=== PATIENT | male | born 1970 | race Caucasian/White ===

== ENCOUNTER 2019-03-18 14:43 | Emergency (ER) | payer BC, SELFPAY ==
[2019-03-18 15:16] VITALS: BP 189/118; PULSE 72; RESP 16; TEMP 36.6; O2SAT 96; BMI 36.9
== END 2019-03-18 17:15 | disposition home or self-care (01) ==
PROVIDERS: Emergency Provider Family Medicine; Family Provider Registered Nurse; PCP Registered Nurse
DX: Z53.21 Procedure and treatment not carried out due to patient leaving prior to being seen by health care provider (principal)
CPT/HCPCS: 99281

== ENCOUNTER 2019-04-13 16:43 | Emergency (ER) | payer BC, SELFPAY ==
[2019-04-13 17:11] VITALS: BP 187/123; PULSE 84; RESP 20; TEMP 36.8; O2SAT 93; BMI 36.9
== END 2019-04-13 21:25 | disposition left against medical advice (07) ==
LOC: ER 16:48
PROVIDERS: Emergency Provider Family Medicine; Family Provider Registered Nurse; PCP Registered Nurse
DX: Z53.21 Procedure and treatment not carried out due to patient leaving prior to being seen by health care provider (principal)
CPT/HCPCS: 99281

== ENCOUNTER → 2019-05-25 14:30 | Outpatient (BNVA) | payer BC, SELFPAY | PROVIDERS: Family Provider Registered Nurse; PCP Registered Nurse; Visit Provider Otolaryngology | DX: R22.1 Localized swelling, mass and lump, neck (principal); R07.81 Pleurodynia | CPT/HCPCS: 31575; 99203; 99204; 99214 ==

== ENCOUNTER 2019-06-03 07:54 | Outpatient (CLI) | payer BC, SELFPAY ==
--- NOTE | 2019-06-03 08:00 | CT_ITS ---
WS: [id number] CT NECK TECHNIQUE: Contrast-enhanced CT of the neck with coronal and sagittal reformatted images. CLINICAL INFORMATION neck mass Comparison Ultrasound July 17, 2018 DLP: 1689.[address] scans at [facility] use at least one of these dose optimization techniques: automat ed exposure control; mA and/or kV adjustment per patient size (includes targeted exams where dose is matched to clinical indication); or iterative reconstruction. FINDINGS: In the area of concern there is a well-circumscribed fat attenuation lesion consistent with lipoma me asuring 3.5 x 1.5 cm. This corresponds to the findings in the prior ultrasound. Salivary glands are normal. No evidence of supraglottic or glottic mass. Normal thyroid gland. Normal parapharyngeal fat. Normal tongue base. Normal palatine tonsils. Aberrant right subclavian artery. No cervical lymphadenopathy. Lung apices are normal. Mastoid air cells and paranasal sinuses are well aerated. Partially visualized intracranial contents unremarkable. CT/CT neck w con* [id number] IMPRESSION: 1. In the area of concern there is a well-circumscribed benign-appearing lipom a measuring 3.5 x 1.5 cm. This corresponds to the findings in the prior ultraso und. 2. Salivary glands are normal. 3. No cervical lymphadenopathy. 4. No evidence of supraglottic or glottic mass. 5. Aberrant right subclavian artery.
[2019-06-03] MEDS: iohexol 300 mg/mL 100 mL Btl IV (08:24)
== END 2019-06-03 07:55 | disposition home or self-care (01) ==
LOC: RADWPI 07:58
PROVIDERS: Family Provider Registered Nurse; PCP Registered Nurse; Visit Provider Otolaryngology
DX: R22.1 Localized swelling, mass and lump, neck (principal); Q27.8 Other specified congenital malformations of peripheral vascular system
CPT/HCPCS: 70491; Q9967

== ENCOUNTER → 2019-06-05 10:01 | Outpatient (BNVA) | payer BC, SELFPAY | PROVIDERS: Family Provider Registered Nurse; PCP Registered Nurse; Visit Provider Otolaryngology | DX: R22.1 Localized swelling, mass and lump, neck (principal) | CPT/HCPCS: 99213 ==

== ENCOUNTER → 2019-06-10 13:44 | Outpatient (BNVA) | payer BC, SELFPAY | PROVIDERS: Family Provider Registered Nurse; PCP Registered Nurse; Referring Provider Otolaryngology; Visit Provider Specialist | DX: M79.2 Neuralgia and neuritis, unspecified (principal); R07.81 Pleurodynia | CPT/HCPCS: 64450; 99204; J1030; J3490 ==

== ENCOUNTER → 2019-06-15 08:22 | Outpatient (BNVA) | payer BC, SELFPAY | PROVIDERS: Family Provider Registered Nurse; PCP Registered Nurse; Referring Provider Specialist; Visit Provider Anesthesiology Pain Medicine | DX: M79.2 Neuralgia and neuritis, unspecified (principal); Z79.891 Long term (current) use of opiate analgesic | CPT/HCPCS: 99213 ==

== ENCOUNTER 2019-06-24 08:07 | Outpatient (CLI) | payer BC, SELFPAY ==
--- NOTE | 2019-06-24 08:14 | MR_ITS ---
WS: [id number] MRI THORACIC SPINE noncontrast HISTORY: THORACIC NEURALGIA COMPARISON: None available. TECHNIQUE: Multiplanar sequences are performed in sagittal and axial planes. Slight reversal and straightening of the normal cervical lordosis. Normal thoracic alignment. Vertebral body heights and the disc spaces are well-maintained. No signal abnormality within the thoracic cord. There is no atrophy or enlargement. Conus tapers normally ends below the L1 level. T1-2: Normal. T2-3: Normal. T3-4: Normal. T4-5: Normal. T5-6: Normal. T6-7: Very tiny central disc protrusion. CSF still surrounds the cord. T7-8: Tiny central disc protrusion. No cord contact. T8-9: Normal. T9-10: Central tiny disc protrusion. Disc osteophyte complex in the RIGHT foramen. Mild facet joint arthritis. No central stenosis but there is mild bilateral foraminal stenosis. T10-11: Mild annular disc bulging and facet arthritis. Mild bilateral foraminal stenosis. T11-12: Mild bilateral foraminal stenosis. Mild foraminal narrowing. MR/MR thoracic spin wo con* [id number] IMPRESSION: 1. Mild bilateral foraminal stenosis at T9-10, T10-11 and T11-12 due to facet joint arthritis and mild disc disease. No severe stenosis. 2. Small central disc protrusions at T6-7, T7-8 and in the RIGHT foramen of T9 -10.
--- NOTE | 2019-06-24 08:45 | CT_ITS ---
WS: [id number] CT CHEST WITHOUT INTRAVENOUS CONTRAST HISTORY: Thoracic Neuralgia TECHNIQUE: Contiguous 5 mm axial imaging performed on the thorax. Coronal and sagittal reformats are submitted. All CT scans at [facility] use at least one of these dose optimization techniq ues: automated exposure control; mA and/or kV adjustment per patient size (includes targeted exams wh ere dose is matched to clinical indication); or iterative reconstruction. CONTRAST: None DLP: 1056.92 mGycm COMPARISON: None available. This study is compromised by breathing motion artifact. Lungs and central airway: Lung volumes are decreased with motion artifact. Mild haziness over both erika ngs. Some of these changes would improve with better inspiration and less breathing motion. There is mild air trapping posteriorly in the lower lung wetzel. A few scattered granulomata. Linear atelectas is at the lingula. No mass or nodule. Pleura: Normal. No pleural effusion. Heart and pericardium: Mildly enlarged cardiac chambers. No pericardial effusion. Mediastinum and hawk: There are calcified hilar mediastinal lymph nodes. No suspicious adenopathy. Vessels: Mildly dilated ascending aorta 4.2 cm diameter. Normal descending aorta. Normal pulmonary ar zak size. Chest wall and lower neck: No soft tissue masses. Upper abdomen: Mild bilateral perinephric stranding. No adrenal mass. Visualized upper abdominal stru ctures are negative. Small hiatal hernia. Osseous structures: Mild bilateral SC joint arthritis. No destructive bone lesions are identified. CT/CT chest wo con [id number] IMPRESSION: 1. Study is limited by breathing motion artifact and poor inspiration. 2. No pneumonia. Subsegmental atelectasis in the lingula. 3. Mild mosaic attenuation throughout the lungs with improved with better insp iration. 4. Mildly dilated ascending thoracic aorta to 4.2 cm. 5. No abnormality noted in the anterior RIGHT thorax.
== END 2019-06-24 08:08 | disposition home or self-care (01) ==
LOC: RADWPI 08:09
PROVIDERS: Family Provider Registered Nurse; PCP Registered Nurse; Visit Provider Specialist
DX: M79.2 Neuralgia and neuritis, unspecified (principal); J98.11 Atelectasis; M48.04 Spinal stenosis, thoracic region; M51.24 Other intervertebral disc displacement, thoracic region
CPT/HCPCS: 71250; 72146

== ENCOUNTER 2019-07-28 08:01 | Day surgery (SDC) | payer BC, SELFPAY ==
[2019-07-27 12:59] VITALS: BMI 39.1
[2019-07-28] MEDS: sodium chloride 0.9% 1,000 ML 100 ML IV (08:58)
--- NOTE | 2019-07-28 09:21 | P.ANESASSM_ITS ---
Pre-Anesthetic Assessment Pre-Anesthetic Assessment: Height/Weight: Height 1.75 m Weight 120.202 kg Preop Diagnosis: neck mass Proposed Procedure: Operation Date: 07/28/19 09:40 Proposed Procedures p Excision Neck Mass/Lesion Removal Neck Mass/Lesion(Not Applicable) - Elijah Barrow MD Last intake: Intake Last Liquid Date 07/27/19 Last Liquid Time 20:00 Last Solid Date 07/27/19 Last Solid Time 20:00 Social: Social History: Alcohol (occ) and No tobacco Exam: Pre-Anes Outpt Exam: alert, oriented x 3, clear to auscultation bilaterally and regular rate & rhythm Airway: Submandibular: WNL Cervical ROM: WNL MP: 2 Dentition: Other (teeth ok) History/ROS: No significant history except as noted Pulmonary: Pulmonary: Sleep apnea CV/HEM: CV/HEM: HTN : : None reported Hepatic: Hepatic: None reported GI: GI: None reported Metabolic: Metabolic: None reported Musc/skel: Musc/skel: None reported Neuropsych: Neuropsych: None reported Anesthetic Plan: ASA status: 2 Anesthesia: Anesthesia Evaluation and General Risk of > 500 ml blood loss (7ml/kg in children): No Meds/Allergies Current Medications: Current Medications Generic Name Dose Route Start Last Admin Trade Name Freq PRN Reason Stop Dose Admin Sodium Chloride 1,000 mls @ 100 m ls/hr 07/28/19 08:30 07/28/19 08:58 Sodium Chloride 0.9% IV 07/29/19 08:29 100 mls/hr .Q10H ELINA Administration PFSH Anesthesia PFSH: Medical History Ganglion cyst Hypertension half-way (current) use of opiate analgesic Neck mass Pain management contract signed Rib pain on right side Sleep apnea Surgical History History of appendectomy History of removal of cyst Family History Other CAD (coronary artery disease) Cancer Hypertension Denies family history of Diabetes Stroke Social History Smoking and tobacco status: never smoked Alcohol intake: current Alcohol intake frequency: holidays/special occasions only History of recent travel: No (Will NOE) Data Anesthesia Cardiac Studies: No Data to Display
--- NOTE | 2019-07-28 10:28 | W.PM.OPSUD ---
Surgery/Procedure H&P Update DATE OF PROCEDURE: July 28, 2019 DATE H&P PERFORMED: 06/15/19 H&P UPDATE INFORMATION: I have reviewed H&P completed within last 30 days, I have examined patient prior to procedure, No changes to prior documentation and H&P to be scanned into chart PREOP DIAGNOSIS: neck mass PLANNED PROCEDURE: Operation Date: 07/28/19 09:40 Proposed Procedures p Excision Neck Mass/Lesion Removal Neck Mass/Lesion(Not Applicable) - Elijah Barrow MD
[2019-07-28] MEDS: neomycin-poly-bacitracin oint 28 gm 1 APPLIC TOPICAL (11:16)
[2019-07-28 11:27] VITALS: BP 172/91; PULSE 81; RESP 16; TEMP 36.2; O2SAT 96
--- NOTE | 2019-07-28 11:29 | PM.OP ---
Operative Report Date of procedure: July 28, 2019 Pre-op Diagnosis: Anterior neck mass Post-op diagnosis: same Post-op Findings: Anterior neck mass Procedure Done: Excisional biopsy of anterior neck mass Specimens removed/disposition: Anterior midline neck mass Surgeon: Elijah Barrow Abrasive Grader: Fabienne Clancy Anesthesia: General Estimated blood loss (mL): 5 IV fluids (mL): 500 Complications: None Findings: 3 cm diamiter anterior midline neck mass with an appearance c/w a lipoma Condition: stable Disposition: PACU Brief History: 49 yo wm with a h/o an enlarging anterior neck mass who desires surgical therapy. Procedure: The patient was identified in the preoperative holding area and was taken to the operating room where he was placed on the operating table in the supine position. Anesthesia was obtained with general endotracheal anesthesia. The anterior midline neck mass was identified and a horizontal skin incision was drawn out over the mass. The mass was then injected with local anesthesia and the patient was then prepped and draped in usual sterile fashion. The incision was then made with a 15 blade, and while retracting the wound edges with Pako skin hooks, the microbipolar forceps were used to dissect the mass free from the underlying tissues. Once the dissection was complete and the mass had been removed, the wound was inspected for hemostasis which was found to be adequate. The wound was then closed with 5-0 Monocryl sutures subcu and a running 5-0 Prolene on the skin. At this point the procedure was terminated and control of the patient was returned to anesthesia where he underwent an uneventful reversal of anesthesia and extubation and was taken to the recovery room in stable condition. There were no operative or anesthetic complications
[2019-07-28 11:35] VITALS: BP 133/85; PULSE 81; RESP 16; TEMP 36.5; O2SAT 94
[2019-07-28 11:40] VITALS: BP 145/91; PULSE 80; RESP 18; TEMP 37.1; O2SAT 93
[2019-07-28 12:17] VITALS: BP 142/91; PULSE 79; RESP 18; TEMP 36.6; O2SAT 93
== END 2019-07-28 12:28 | disposition home or self-care (01) ==
PROVIDERS: PCP Registered Nurse; Visit Provider Specialist
PROC: (CPT 11423; principal; 2019-07-28 09:40)
DX: D17.0 Benign lipomatous neoplasm of skin and subcutaneous tissue of head, face and neck (principal); I10 Essential (primary) hypertension; G47.30 Sleep apnea, unspecified; Z79.891 Long term (current) use of opiate analgesic; Z82.49 Family history of ischemic heart disease and other diseases of the circulatory system
CPT/HCPCS: 11423; 12042; 12345; 88307; J0330; J0690; J1100; J2405; J2704; J2710; J3010; J3490; J7030

== ENCOUNTER → 2019-08-31 10:21 | Outpatient (BNVA) | payer BC, SELFPAY | PROVIDERS: PCP Registered Nurse; Visit Provider Registered Nurse | DX: R22.1 Localized swelling, mass and lump, neck (principal); E07.9 Disorder of thyroid, unspecified | CPT/HCPCS: 84443 ==

== ENCOUNTER → 2019-10-20 14:36 | Outpatient (BNVA) | payer BC, SELFPAY | PROVIDERS: PCP Registered Nurse; Visit Provider Nurse Practitioner Family | DX: J02.9 Acute pharyngitis, unspecified (principal); R09.81 Nasal congestion; R53.83 Other fatigue | CPT/HCPCS: 87635 ==

== ENCOUNTER → 2019-10-30 11:37 | Outpatient (BNVA) | payer BC, SELFPAY | PROVIDERS: PCP Registered Nurse; Visit Provider Nurse Practitioner Family | DX: J02.9 Acute pharyngitis, unspecified (principal); R53.83 Other fatigue; Z11.59 Encounter for screening for other viral diseases | CPT/HCPCS: 87635 ==

== ENCOUNTER → 2020-01-19 10:33 | Outpatient (BNVA) | payer BC, SELFPAY | PROVIDERS: PCP Registered Nurse; Visit Provider Registered Nurse | DX: I10 Essential (primary) hypertension (principal); E78.5 Hyperlipidemia, unspecified | CPT/HCPCS: 80053; 80061; 85025 ==

== ENCOUNTER → 2020-03-14 18:24 | Outpatient (BNVA) | payer BC, SELFPAY | PROVIDERS: PCP Registered Nurse; Visit Provider Nurse Practitioner Family | DX: Z20.828 Contact with and (suspected) exposure to other viral communicable diseases (principal) | CPT/HCPCS: 87635 ==

== ENCOUNTER 2020-03-17 18:42 | Emergency (ER) | payer BC, SELFPAY ==
[2020-03-17 19:04] VITALS: BP 162/99; PULSE 120; RESP 18; TEMP 36.9; O2SAT 98; BMI 38.4
--- NOTE | 2020-03-17 19:26 | XR_ITS ---
WS: [id number] Exam: XR chest 1V portable [id number] Date/Time of Exam: 03/17/2020 7:43 PM Reason For Exam: COVID Comparison 06/24/2018. There is infiltrate in the left lower lobe suggesting pneumonia. The right lung is clear. Cardiomedia stinal structures are unremarkable for technique. Calcified granulomas in both lungs. XR/XR chest 1V portable [id number] IMPRESSION: 1. Left lower lobe infiltrate consistent with pneumonia.
--- NOTE | 2020-03-17 19:45 | W.ED.COVID ---
HPI - COVID General: Chief Complaint: COVID symptoms Stated Complaint: COVID+, not sure where/when tested +/o2 @ 86 Time Seen by Provider: 03/17/20 19:24 Triage information: No fever, cough or shortness of breath. No known COVID + exposure last 14 days History of Present Illness: HPI Narrative: Patient tested positive urgent care Saturday got reports Saturday been said from [phone] at work they said they need to come and get checked out MD complaint: known COVID positive and has COVID symptoms Prior covid testing: yes, results known Prior testing date: 03/14/20 COVID 19 common symptoms: positive fever(s), chills, non-productive cough, body aches, loss of sense of smell and/or taste, nausea and diarrhea; negative headache(s), throat pain or nasal congestion COVID 19 other sytmptoms: negative chest pain Onset (ago): day(s) Severity: mild Pertinent comorbid conditions: hypertension Treatment prior to arrival: acetaminophen COVID Results: SARS-CoV-2 RNA (RT-PCR) Not detected (NOT DETECTED) 10/30/19 11:37 10/30/19 Nasal/Oral Coronavirus 2019 PCR Detected H 03/14/20 18:24 03/14/20 Review of Systems Const: Reports: fever(s), chills and body aches Eyes: Denies: change in vision or blurry vision ENMT: Denies: throat pain or nasal congestion Card: Denies: chest pain or dyspnea on exertion Resp: Reports: non-productive cough GI: Reports: nausea and diarrhea : Denies: difficulty urinating Musc: Denies: extremity pain Skin/Breast: Denies: rash Neuro: Denies: headache(s) Psych: Denies: anxiety or depression Norm/Lymph: Denies: easy bruising PFSH ED PFSH: Medical History (Updated 03/17/20 @ 20:04 by DARBY Boothe) Family history of thyroid disease Ganglion cyst Hypertension [facility] (current) use of opiate analgesic Neck mass Pain management contract signed Rib pain on right side Sleep apnea Surgical History History of appendectomy History of removal of cyst Family History Other CAD (coronary artery disease) Cancer Hypertension Denies family history of Diabetes Stroke Social History (Updated 03/14/20 @ 17:59 by Betty Scales NP) Smoking and tobacco status: never smoked Alcohol intake: current Alcohol intake frequency: holidays/special occasions only History of recent travel: No (Will NOE) Physical Exam Const: COMMON NORMALS: no acute distress, average body habitus and patient oriented x3 HENMT: COMMON NORMALS: normocephalic HEAD & SCALP: normal to inspection and normocephalic FACE & SINUS: normal facial exam Eye: COMMON NORMALS: conjunctivae normal GENERAL EYE: appearance normal, both eyes and all related structures CONJUNCTIVA: Yes conjunctivae normal Neck/C-Spine: COMMON NORMALS: no JVD Chest: COMMONS NORMALS: normal inspection of the chest Resp: COMMON NORMALS: normal respiratory effort and clear to auscultation bilaterally AUSCULTATION: clear to auscultation bilaterally Cardio: COMMON NORMALS: no JVD, regular rate and regular rhythm RATE: regular rate RHYTHM: regular rhythm GI: COMMON NORMALS: Normal to inspection, nondistended, normoactive bowel sounds present Extremity: COMMON NORMALS: normal to inspection and full ROM Neuro: COMMON NORMALS: patient oriented x3 Course Vital Signs: Vital signs: Vital Signs Temperature 98.5 F 03/17/20 19:04 Pulse Rate 120 H 03/17/20 19:04 Respiratory Rate 18 03/17/20 19:04 Blood Pressure 162/99 03/17/20 19:04 Pulse Oximetry 98 03/17/20 19:04 MDM - COVID Imaging Data: CXR: My impression: Left lobe haziness COVID Results: SARS-CoV-2 RNA (RT-PCR) Not detected (NOT DETECTED) 10/30/19 11:37 10/30/19 Nasal/Oral Coronavirus 2019 PCR Detected H 03/14/20 18:24 03/14/20 Discharge Plan Discharge Patient Disposition: Home Clinical Impression: COVID-19 Condition: Stable Prescriptions: New dexamethasone 6 mg tablet 6 mg PO DAILY Qty: 7 RF: 0 No Action amlodipine 10 mg tablet 10 mg PO ONCE Qty: 90 RF: 0 carvedilol 12.5 mg tablet 12.5 mg PO BID Qty: 90 RF: 0 hydrochlorothiazide 50 mg tablet 50 mg PO QAM Qty: 90 RF: 0 Discharge Orders: Discharge ED (Routine); Ordered 03/17/20 Ordered By: Zechariah Ibarra Referrals: Lisa Brown FNP [Primary Care Provider] - Discharge Diet: Usual diet Discharge Activity: Increase activity as tolerated Activity Restrictions/Additional Instructions: Quarantine at home for 10 days. Take medicine as directed. Follow-up if worsening of symptoms shortness of breath or sats stay low consistently. Home with a pulse ox monitor. Coding Level of Care Code ED Civil Engineering Intern for Chg Fwd Exam Comprehensive
[2020-03-17 20:06] VITALS: O2SAT 93
[2020-03-17] MEDS: dexamethasone 4 mg Tablet 10 MG PO (20:21)
[2020-03-17 20:26] VITALS: PULSE 84; RESP 18; O2SAT 93
== END 2020-03-17 20:28 | disposition home or self-care (01) ==
PROVIDERS: Emergency Provider Nurse Practitioner Family; PCP Registered Nurse
DX: U07.1 COVID-19 (principal); I10 Essential (primary) hypertension
CPT/HCPCS: 12345; 71045; 99281; 99283; J8540

== ENCOUNTER → 2020-11-15 17:59 | Outpatient (BNVA) | payer BC, SELFPAY | PROVIDERS: PCP Registered Nurse | DX: R36.1 Hematospermia (principal) | CPT/HCPCS: 81000; 87086; 87491; 87591; 87661 ==

== ENCOUNTER 2020-12-19 10:30 | Emergency (ER) | payer BC, SELFPAY ==
[2020-12-19 10:38] VITALS: BP 145/91; PULSE 74; RESP 14; TEMP 36.8; O2SAT 95; BMI 38.4
[2020-12-19 10:46] VITALS: BP 146/87; PULSE 76; RESP 14; O2SAT 93
--- NOTE | 2020-12-19 11:25 | ED_ITS ---
HPI - Wound/Laceration General: Chief Complaint: Wound/Laceration Stated Complaint: abscess: LUE Time Seen by Provider: 12/19/20 10:31 History of Present Illness: HPI narrative: 50-year-old male presents emergency room with complaint of a swollen indurated area on the ulnar ridge of his left forearm. Has had some mild drainage she is these episodes before it began after he tried to block an ingrown hair out of that area. Onset (ago): day(s) Extremity Location: Left: forearm Place: home Associated symptoms: Reports pain; Denies chills, fever(s), foreign body sensation, inability to move, nausea, numbness, syncope or vomiting Review of Systems Const: Denies: fever(s) or chills ENMT: Denies: throat pain, ear or mastoid pain, nasal discharge or nasal congestion Card: Denies: syncope Resp: Denies: dyspnea, productive cough or non-productive cough GI: Denies: nausea or vomiting : Denies: flank pain, dysuria, urinary frequency or urinary urgency Skin/Breast: Denies: rash or pruritus PFSH ED PFSH: Medical History Family history of thyroid disease Ganglion cyst Hypertension longterm (current) use of opiate analgesic Neck mass Pain management contract signed Rib pain on right side Sleep apnea Surgical History History of appendectomy History of removal of cyst Family History Other CAD (coronary artery disease) Cancer Hypertension Denies family history of Diabetes Stroke Social History Smoking and tobacco status: never smoked Alcohol intake: current Alcohol intake frequency: holidays/special occasions only History of recent travel: No (Will NOE) Physical Exam Const: COMMON NORMALS: no acute distress GENERAL APPEARANCE: cooperative and comfortable ORIENTATION/CONSCIOUSNESS: Yes awake, Yes oriented to person, Yes oriented to place and Yes oriented to time HENMT: COMMON NORMALS: normocephalic, atraumatic and hearing grossly normal bilaterally HEAD & SCALP: normocephalic and atraumatic Neck/C-Spine: COMMON NORMALS: no JVD Resp: COMMON NORMALS: normal respiratory effort, No retractions, No use of accessory muscles and clear to auscultation bilaterally AUSCULTATION: clear to auscultation bilaterally Cardio: COMMON NORMALS: no JVD, regular rate, regular rhythm and No murmurs present (Cardio) RATE: regular rate RHYTHM: regular rhythm Neuro: SENSORIUM/ORIENTATION: Yes oriented to person, Yes oriented to place a nd Yes oriented to time Skin: OTHER: Small indurated area approximately 1/4 inches across around central small eschar which is deroofed there is very scant amount of drainage which was cultured no abscess. Course Vital Signs: Vital signs: Vital Signs Temperature 98.2 F 12/19/20 10:38 Pulse Rate 76 12/19/20 10:46 Respiratory Rate 14 12/19/20 10:46 Blood Pressure 146/87 12/19/20 10:46 Pulse Oximetry 93 12/19/20 10:46 Discharge Plan Discharge Patient Disposition: Home Clinical Impression: Cellulitis Condition: Stable Prescriptions: New Bactrim DS 800-160 mg tablet 1 tab PO BID 7 Days Qty: 14 RF: 0 hydrocodone-acetaminophen 5-325 mg tablet 1 tab PO Q6H PRN (Reason: pain) Qty: 7 RF: 0 No Action amlodipine 10 mg tablet 10 mg PO ONCE Qty: 90 RF: 1 carvedilol 12.5 mg tablet 12.5 mg PO BID Qty: 90 RF: 1 hydrochlorothiazide 50 mg tablet 50 mg PO QAM Qty: 90 RF: 1 tadalafil [Cialis] 20 mg tablet 20 mg PO DAILY PRN (Reason: sexual activity) 30 Days Qty: 30 RF: 1 ciprofloxacin HCl 500 mg tablet 500 mg PO BID 10 Days Qty: 20 RF: 0 Discharge Orders: Discharge ED (Routine); Ordered 12/19/20 Ordered By: Kelechi Mayo Referrals: Lisa Brown FNP [Primary Care Provider] - Discharge Diet: Usual diet Discharge Activity: Increase activity as tolerated Patient Instructions: Opioid Safety Coding Level of Care Code 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
== END 2020-12-19 11:37 | disposition home or self-care (01) ==
PROVIDERS: Emergency Provider Family Medicine; PCP Registered Nurse
DX: L03.114 Cellulitis of left upper limb (principal); I10 Essential (primary) hypertension
CPT/HCPCS: 87070; 87075; 87077; 87186; 87205; 99282

== ENCOUNTER → 2020-12-21 11:54 | Outpatient (BNVA) | payer BC, SELFPAY | PROVIDERS: PCP Registered Nurse; Visit Provider Registered Nurse | DX: L02.91 Cutaneous abscess, unspecified (principal); L02.414 Cutaneous abscess of left upper limb | CPT/HCPCS: 87070; 87075; 87077; 87184; 87205 ==

== ENCOUNTER 2020-12-25 14:06 | Outpatient (CLI) | payer BC, SELFPAY | END 2020-12-25 14:07 | disposition home or self-care (01) | LOC: LAB 14:09 | PROVIDERS: PCP Registered Nurse; Visit Provider Nurse Practitioner | DX: L02.414 Cutaneous abscess of left upper limb (principal) | CPT/HCPCS: 85025 ==

== ENCOUNTER 2020-12-28 13:56 | Outpatient (CLI) | payer BC, SELFPAY | END 2020-12-28 13:57 | disposition home or self-care (01) | LOC: WOUND 13:57 | PROVIDERS: PCP Registered Nurse; Visit Provider Thoracic Surgery (Cardiothoracic Vascular Surgery) | DX: L98.492 Non-pressure chronic ulcer of skin of other sites with fat layer exposed (principal) | CPT/HCPCS: 11042; G0463 ==

== ENCOUNTER 2021-01-04 14:47 | Outpatient (CLI) | payer BC, SELFPAY | END 2021-01-04 14:48 | disposition home or self-care (01) | LOC: WOUND 14:47 | PROVIDERS: PCP Registered Nurse; Visit Provider Nurse Practitioner Family | DX: L98.492 Non-pressure chronic ulcer of skin of other sites with fat layer exposed (principal) | CPT/HCPCS: 11042 ==

== ENCOUNTER → 2021-03-12 15:26 | Outpatient (BNVA) | payer BC, SELFPAY | PROVIDERS: PCP Registered Nurse; Visit Provider Family Medicine | DX: J01.90 Acute sinusitis, unspecified (principal); R05.9 Cough, unspecified; U07.1 COVID-19 | CPT/HCPCS: 87400; 87635; 87801 ==

== ENCOUNTER 2021-08-10 09:03 | Day surgery (SDC) | payer BC, SELFPAY ==
[2021-08-08 12:46] VITALS: BMI 39.1
[2021-08-10] VITALS (8 sets, daily range): BP systolic 101–164; BP diastolic 64–108; PULSE 64–70; RESP 7–22; TEMP 36.2–37.2; O2SAT 93–97
--- NOTE | 2021-08-10 09:59 | P.ANESASSM_ITS ---
Pre-Anesthetic Assessment Height/Weight: Height 1.75 m Weight 120.202 kg Temp Pulse Resp BP Pulse Ox 98.9 F 68 18 164/108 97 08/10/21 09:41 08/10/21 09:41 08/10/21 09:41 08/10/21 09:41 08/10/21 09:41 Preop Diagnosis: Ganglion right kneeWrist Operation Date: 08/10/21 11:00 Proposed Procedures p mass excision volar right wrist [id number]/M67.431(Right) - Danny Ridley MD Familial anesthetic complications: None Was Beta Randee taken within 24 hours: Yes Was Clonidine taken within 24 hours: N/A Last intake: Intake Last Liquid Date 08/09/21 Last Liquid Time 21:30 Last Solid Date 08/09/21 Last Solid Time 20:00 Social No alcohol and No tobacco Exam alert, oriented x 3, clear to auscultation bilaterally and regular rate & rhythm Airway Mallampati: Class III Dentition: full Pulmonary Sleep Apnea CV/HEM Hypertension Metabolic Morbid Obesity Anesthetic Plan ASA status: 2 Anesthesia: MAC Risk of > 500 ml blood loss (7ml/kg in children): No Medications/Allergies Home Medications Medication Instructions Recorded Confirmed Last Taken Type carvedilol 12.5 mg tablet 12.5 mg PO BID #90 tab 11/15/20 08/10/21 08/09/21 Rx hydrochlorothiazide 50 mg tablet 50 mg PO QAM #90 tab 11/15/20 08/10/21 08/09/21 Rx amlodipine 10 mg tablet 10 mg PO DAILY 08/08/21 08/10/21 08/09/21 History Allergies Allergy/AdvReac Type Severity Reaction Status Date / Time No Known Allergies Allergy Verified 07/19/21 13:54 [facility] Anesthesia Medical History Family history of thyroid disease Ganglion cyst 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
[2021-08-10] MEDS: sodium chloride 0.9% 1,000 ML 30 ML IV (10:06)
--- NOTE | 2021-08-10 11:05 | W.PM.OPSUD ---
Surgery/Procedure H&P Update DATE OF PROCEDURE: August 10, 2021 DATE H&P PERFORMED: 07/19/21 H&P UPDATE INFORMATION: I have reviewed H&P completed within last 30 days PREOP DIAGNOSIS: Ganglion right kneeWrist PLANNED PROCEDURE: Operation Date: 08/10/21 11:00 Proposed Procedures p mass excision volar right wrist [id number]/M67.431(Right) - Danny Ridley MD
--- NOTE | 2021-08-10 12:17 | P.OP_ITS ---
Operative Report Date of procedure: August 10, 2021 Pre-op diagnosis: Preop Diagnosis Ganglion right Wrist Post-op diagnosis: same Procedure done: Excision ganglion right volar wrist Pathology: none sent Surgeon: Danny Ridley Anesthesia: Nerve Block (Vanderwagen block) Estimated blood loss (mL): 20 Tourniquet time (min): 24 Findings: The patient had a fluid filled cyst over the volar radial wrist consistent with a volar ganglion Condition: stable Disposition: PACU Procedure: The patient was taken to the operating room and given a Audi block. The right upper extremity was prepped and draped in the usual fashion. A L-shaped incision was made over the volar mass and dissection carried down through the skin revealing the cystic ganglion mass. Dissection was accomplished circumferentially elevating dorsal veins and ligating arterial perforators about the ganglion. The ganglion ruptured during excision and was removed in several pieces. It was not sent to pathology as the clinical appearance was entirely consistent with a ganglion. The tourniquet was deflated. Hemostasis provided with bipolar cautery. Deep tissues were closed with 3-0 Vicryl and the skin with 3-0 Prolene. Xeroflo gauze 4 x 4's compressive web roll of volar splint and Philipp wrap are applied. The patient was taken to recovery room in stable condition.
[2021-08-10] MEDS: fentaNYL 50 mcg/mL INJ 2mL IVP ×2 (12:29→12:35)
[2021-08-10] MEDS: HYDROcodone-acetaminophen 5-325 mg Tablet 1 TAB PO (13:08)
--- NOTE | 2021-08-10 14:29 | ANE.PACU2 ---
Inpatient post-anesthesia follow up: Airway intact: Yes Vital signs: Temperature 97.8 F Pulse Rate 64 Respiratory Rate 18 Blood Pressure 148/94 Pulse Oximetry 95 Oxygen Delivery Me thod Room Air Oxygen Flow Rate Fraction of Inspir ed Oxygen Hydration adequate: Yes Nausea and vomiting: No Pain level: 1 Mental status: Baseline
== END 2021-08-10 13:25 | disposition home or self-care (01) ==
PROVIDERS: PCP Registered Nurse; Visit Provider Orthopaedic Surgery
PROC: (CPT 25111; principal; 2021-08-10 10:50)
DX: M67.431 Ganglion, right wrist (principal); G47.30 Sleep apnea, unspecified; I10 Essential (primary) hypertension; E66.01 Morbid (severe) obesity due to excess calories; Z68.39 Body mass index [BMI] 39.0-39.9, adult
CPT/HCPCS: 25111; J2250; J2704; J3010; J3490; J7030

== ENCOUNTER 2021-12-03 21:59 | Emergency (ER) | payer BC, SELFPAY ==
--- NOTE | 2021-12-03 22:01 | XRR_ITS ---
PROCEDURE INFORMATION: Exam: XR Chest Exam date and time: 12/03/2021 10:09 PM Age: 51 years old Clinical indication: Shortness of breath; Additional info: Cough, dyspnea TECHNIQUE: Imaging protocol: Radiologic exam of the chest. Views: 1 view. COMPARISON: CR XR chest 1V portable [id number] 03/17/2020 7:44 PM FINDINGS: Lungs: Partially calcified granulomas are seen within the hemithoraces bilaterally appearing stable compared with 03/17/2020. There are mildly increased peribronchial markings present bilaterally, findings that may represent a bronchitis. Pleural spaces: Unremarkable. No pleural effusion. No pneumothorax. Heart/Mediastinum: Unremarkable. No cardiomegaly. Bones/joints: Unremarkable. XR/XR chest 1V portable [id number] IMPRESSION: Mild increased peribronchial markings could represent bronchitis.
[2021-12-03 22:21] VITALS: BP 188/94; PULSE 86; RESP 16; TEMP 36.5; O2SAT 94
[2021-12-03 22:25] VITALS: BP 180/98; PULSE 84; RESP 17; O2SAT 96
--- NOTE | 2021-12-03 22:51 | W.ED.SOB ---
HPI - SOB/Dyspnea General: Chief Complaint: Shortness of Breath/Dyspnea Stated Complaint: cough, sob Time Seen by Provider: 12/03/21 22:27 History of Present Illness: HPI Narrative: 51-year-old male patient comes in today with complaints of some persistent coughing for the last 2 weeks. Patient also reports some chest congestion. Patient has a history of pneumonia and is concerned he may be developing pneumonia again. Patient appears nontoxic. Patient appears in no pain. 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 Neck mass Pain management contract signed Rib pain on right side Sleep apnea Surgical History History of appendectomy History of removal of cyst Family History Other CAD (coronary artery disease) Cancer Hypertension Denies family history of Diabetes Stroke Social History Smoking and tobacco status: never smoked Alcohol intake: current Alcohol intake frequency: holidays/special occasions only History of recent travel: No (Will NOE) Physical Exam Const: COMMON NORMALS: alert HENMT: COMMON NORMALS: normocephalic HEAD & SCALP: normocephalic Resp: COMMON NORMALS: normal respiratory effort AUSCULTATION: diminished lung sounds Cardio: COMMON NORMALS: regular rate and regular rhythm RATE: regular rate RHYTHM: regular rhythm Extremity: COMMON NORMALS: normal to inspection Neuro: SENSORIUM/ORIENTATION: Yes alert Skin: COMMON NORMALS: turgor normal GENERAL SKIN EXAM: turgor normal Course Vital Signs: Vital signs: Vital Signs Temperature 97.7 F 12/03/21 22:21 Pulse Rate 84 12/03/21 22:25 Respiratory Rate 17 12/03/21 22:25 Blood Pressure 180/98 12/03/21 22:25 Pulse Oximetry 96 12/03/21 22:25 Oxygen Delivery Me thod 12/03/21 22:25 MDM - SOB/Dyspnea Medical Decision Making 51-year-old male patient comes in with a persistent cough for the last 2 weeks. On exam patient appears nontoxic. Lungs have air movement throughout with diminished sounds in the bases. Abdomen soft nontender. No edema is noted in the extremities. Vital signs are normal except for mild elevation in blood pressure. Differential diagnosis includes pneumonia, bronchitis, postnasal drip. Chest x-ray noted bronchitis. EKG showed a sinus rhythm with no signs of acute abnormalities. We will treat patient for acute bronchitis with doxycycline and steroid. Patient was also given a inhaler to use 2 puffs every 4 hours as needed for persistent coughing or shortness of breath or wheezing. Patient reported understanding and agreed to plan. Lab Data Labs/Radiology: Radiology Impressions Chest X-Ray 12/03/21 22:01 IMPRESSION: Mild increased peribronchial markings could represent bronchitis. EKG Data EKG 1: EKG Interpretation Date: 12/03/21 EKG interpretation time: 23:05 Prior EKG tracings: not available for review Interpretation: EKG shows a sinus rhythm with a regular rate at [address] elevation or ectopy is noted. Prior exam was not available for immediate comparison. Discharge Plan Discharge Patient Disposition: Home Clinical Impression: Bronchitis Condition: Stable Prescriptions: New doxycycline monohydrate 100 mg capsule 100 mg PO BID 7 Days Qty: 14 0RF prednisone 20 mg tablet 20 mg PO DAILY Qty: 7 0RF albuterol sulfate 90 mcg/actuation HFA aerosol inhaler 2 inh inhalation Q4H PRN (Reason: shortness of breath or wheezing) Qty: 8.5 0RF No Action carvedilol 12.5 mg tablet 12.5 mg PO BID Qty: 90 1RF hydrochlorothiazide 50 mg tablet 50 mg PO QAM Qty: 90 1RF amlodipine 10 mg tablet 10 mg PO DAILY hydrocodone-acetaminophen 5-325 mg tablet 1 tab PO Q4H Qty: 10 0RF Discharge Orders: Discharge ED (Routine); Ordered 12/03/21 Ordered By: Warren Baker Referrals: Lisa Brown FNP [Primary Care Provider] - Discharge Diet: Usual diet Discharge Activity: Increase activity as tolerated Patient Instructions: Acute Bronchitis (ED) Activity Restrictions/Additional Instructions: Take medication as directed. You will take antibiotic doxycycline 100 mg 2 times a day for 7 days. Use prednisone 20 mg daily for 7 days. The antibiotic will cover any bacterial infection. The prednisone, steroid, will help with cough and congestion. You also need to use albuterol inhaler 2 puffs every 4 hours as needed for any shortness of breath, persistent coughing, or wheezing. Follow-up with primary care in 3 to 5 days for recheck. Return to ER for worsening symptoms such as fever greater than 100.4, severe shortness of breath, or chest pain. 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
[2021-12-03 23:01] VITALS: BP 154/99; PULSE 82; RESP 16; O2SAT 92
[2021-12-03] MEDS: doxycycline 100 mg Tablet PO (23:02)
[2021-12-03] MEDS: dexamethasone 10 mg/mL INJ IVP (23:02)
[2021-12-03] MEDS: ipratropium-albuterol 3 mL Neb INHALATION (23:14)
[2021-12-03] MEDS: albuterol 8 gm MDI 2 PUFF INHALATION (23:14)
[2021-12-03 23:15] VITALS: PULSE 76; RESP 16; O2SAT 94
[2021-12-03 23:19] VITALS: PULSE 77
--- NOTE | 2021-12-03 23:28 | ECG_ITS ---
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 Measurements Intervals [place] Rate: 81 P: 39 AK: 170 QRS: -33 QRSD: 120 T: 69 QT: 398 QTc: 463 Interpretive Statements SINUS RHYTHM LEFT AXIS DEVIATION [QRS AXIS < -30] MODERATE INTRAVENTRICULAR CONDUCTION DELAY [110+ ms QRS DURATION] MODERATE VOLTAGE CRITERIA FOR LVH, CONSIDER NORMAL VARIANT [MEETS CRITERIA IN ONE OF: R(aVL), S(V1), R(V5), R(V5/V6)+S(V1)] NONSPECIFIC T-WAVE ABNORMALITY INTERPRETATION BASED ON A DEFAULT AGE OF 40 YEARS Compared to ECG 06/24/2018 16:18:20 T-wave abnormality now present Electronically Signed On 12-04-2021 7:36:14 CDT by Kayode Silveira M.D. [id number]
[2021-12-03 23:40] VITALS: BP 169/90; PULSE 77; RESP 20; O2SAT 94
== END 2021-12-03 23:41 | disposition home or self-care (01) ==
PROVIDERS: Emergency Provider Nurse Practitioner Family
DX: J40 Bronchitis, not specified as acute or chronic (principal); I10 Essential (primary) hypertension
CPT/HCPCS: 71045; 93005; 94640; 96374; 99284; J1100; J3535

== ENCOUNTER → 2021-12-18 08:42 | Outpatient (BNVA) | payer BC, SELFPAY | PROVIDERS: PCP Registered Nurse; Visit Provider Registered Nurse | DX: I10 Essential (primary) hypertension (principal); Z91.14 Patient's other noncompliance with medication regimen | CPT/HCPCS: 80053; 80061; 85025 ==

== ENCOUNTER 2022-04-25 15:51 | Outpatient (CLI) | payer BC, SELFPAY | END 2022-04-25 15:52 | disposition home or self-care (01) | LOC: SPT 15:51 | PROVIDERS: PCP Registered Nurse; Visit Provider Orthopaedic Surgery | DX: Z46.89 Encounter for fitting and adjustment of other specified devices (principal); M67.431 Ganglion, right wrist | CPT/HCPCS: 97760; L3908 ==

== ENCOUNTER 2022-05-28 13:55 | Emergency (ER) | payer BC, SELFPAY ==
[2022-05-28 14:07] VITALS: BP 167/93; PULSE 70; RESP 16; TEMP 36.3; O2SAT 99
[2022-05-28] MEDS: dexamethasone 10 mg/mL INJ IVP (15:12)
[2022-05-28] MEDS: orphenadrine 30 mg/mL Inj 2 mL 60 MG IVP (15:13)
[2022-05-28] MEDS: ketorolac 30 mg/mL INJ IVP (15:13)
--- NOTE | 2022-05-28 15:18 | ED_ITS ---
HPI - Back Pain/Injury General: Chief Complaint: Back Pain/Injury Stated Complaint: Low back pain Time Seen by Provider: 05/28/22 14:49 Source: patient Mode of arrival: ambulatory History of Present Illness: 52-year-old male who presents emergency room with complaints of back pain. He fell a week ago misstepped while getting off of his porch did not strike his head did not lose consciousness been ambulatory since then. He complains of pain in his low back he does not have any radicular pain no difficulty with bowel or bladder no numbness tingling radiating to the lower extremities. Straight some [id number] remedies with no significant improvement MD elicited complaint: back pain Pertinent past history: prior back pain Onset (ago): week(s) Timing: constant Severity: moderate Similar Symptoms Previously: Yes Quality: aching Location: lumbar spine Radiation: none Exacerbating factors: none Relieving factors: none Associated symptoms: Deny abdominal pain, arthralgias, chills, change in bowel habits, difficulty walking, dysuria, fatigue, fecal incontinence, fever(s), hematuria, myalgias, nausea, numbness, syncope, tingling/numbness/burning, urinary frequency, urinary urgency, vomiting or weakness Review of Systems Const: Denies: fever(s), chills or fatigue ENMT: Denies: throat pain, ear or mastoid pain, nasal discharge or nasal congestion Card: Denies: syncope Resp: Denies: dyspnea, productive cough or non-productive cough GI: Denies: abdominal pain, nausea, vomiting, fecal incontinence or change in bowel habits : Denies: dysuria, urinary urgency or hematuria Musc: Reports: back pain Skin/Breast: Denies: rash or pruritus Neuro: Denies: difficulty walking PFS ED PFSH: Medical History Family history of thyroid disease Ganglion cyst Hypertension 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 Neck mass Pain management contract signed Rib pain on right side Sleep apnea Surgical History History of appendectomy History of removal of cyst Family History Other CAD (coronary artery disease) Cancer Hypertension Denies family history of Diabetes Stroke Social History Smoking and tobacco status: never smoked Alcohol intake: current Alcohol intake frequency: holidays/special occasions o nly Adopted: No Caregiver/support person: No Lives independently: Yes service: No Current occupational status: employed Sexually active: Yes Current gender identity: Male Physical Exam Const: GENERAL APPEARANCE: cooperative and comfortable ORIENTATION/CONSCIOUSNESS: Yes awake, Yes oriented to person, Yes oriented to place and Yes oriented to time HENMT: COMMON NORMALS: normocephalic, atraumatic and hearing grossly normal bilaterally HEAD & SCALP: normocephalic and atraumatic Resp: COMMON NORMALS: normal respiratory effort, No retractions, No use of accessory muscles and clear to auscultation bilaterally AUSCULTATION: clear to auscultation bilaterally Cardio: COMMON NORMALS: regular rate, regular rhythm and No murmurs present (Cardio) RATE: regular rate RHYTHM: regular rhythm GI: COMMON NORMALS: Soft to palpation and No hepatosplenomegaly present AUSCULTATION: Yes normoactive bowel sounds PALPATION: Yes Soft to palpation, No Tenderness to palpation present (GI), No Guarding due to palpation present (GI) and Yes No hepatosplenomegaly present Extremity: COMMON NORMALS: normal to inspection, capillary refill normal, no clubbing, cyanosis or edema, no calf tenderness and no pedal edema OTHER: Sensation lower extremities normal dorsal and plantarflexion 5/5 straight leg raising negative. Neuro: SENSORIUM/ORIENTATION: Yes oriented to person, Yes oriented to place and Yes oriented to time Skin: COMMON NORMALS: no rashes or lesions noted GENERAL SKIN EXAM: no rashes or lesions noted Course Vital Signs: Vital signs: Vital Signs Temperature 97.3 F L 05/28/22 14:07 Pulse Rate 70 05/28/22 14:07 Respiratory Rate 16 05/28/22 14:07 Blood Pressure 167/93 05/28/22 14:07 Pulse Oximetry 99 05/28/22 14:07 Oxygen Delivery Me thod 05/28/22 14:07 MDM - Back Pain/Injury Medical Decision Making No signs of impingement. Strength and sensation lower extremities normal. Patient treated in the emergency room with good relief discharged home with steroid taper nonsteroidals muscle relaxer follow-up with primary care if not improving. Medical Records I reviewed the patient's medical records. Labs I reviewed the patient's lab results. Discharge Plan Discharge Patient Disposition: Home Clinical Impression: Strain of lumbar region Condition: Stable Prescriptions: New prednisone 20 mg tablet 20 mg PO TID Qty: 15 0RF Rx Instructions: 1 p.o. 3 times daily x3 days, 1 p.o. twice daily x2 days, 1 p.o. daily x2 days tizanidine 4 mg tablet 4 mg PO Q6H PRN (Reason: muscle spasticity) Qty: 20 0RF Rx Instructions: do not exceed 3 doses per 24 hrs diclofenac sodium 75 mg tablet,delayed release (DR/EC) 75 mg PO Q12H PRN (Reason: pain) Qty: 20 0RF No Action (DME) cock up splint See Rx Instructions .Route .MEDSUPPLY Qty: 1 0RF Rx Instructions: As directed carvedilol 12.5 mg tablet See Rx Instructions .ROUTE .COMPLEX Qty: 180 0RF Dose Instruction: TAKE 1 TABLET BY MOUTH TWICE A DAY Rx Instructions: TAKE 1 TABLET BY MOUTH TWICE A DAY amlodipine 10 mg tablet See Rx Instructions .ROUTE .COMPLEX Qty: 90 0RF Dose Instruction: TAKE 1 TABLET BY MOUTH EVERY DAY Rx Instructions: TAKE 1 TABLET BY MOUTH EVERY DAY hydrochlorothiazide 50 mg tablet See Rx Instructions .ROUTE .COMPLEX Qty: 90 0RF Dose Instruction: TAKE 1 TABLET BY MOUTH EVERY DAY IN THE MORNING Rx Instructions: TAKE 1 TABLET BY MOUTH EVERY DAY IN THE MORNING rosuvastatin 10 mg tablet See Rx Instructions .ROUTE .COMPLEX Qty: 90 0RF Dose Instruction: TAKE 1 TABLET BY MOUTH EVERY DAY Rx Instructions: TAKE 1 TABLET BY MOUTH EVERY DAY albuterol sulfate 90 mcg/actuation HFA aerosol inhaler 2 inh inhalation Q4H PRN (Reason: shortness of breath or wheezing) Qty: 8.5 0RF hydrocodone-acetaminophen 5-325 mg tablet 1 tab PO Q4H Qty: 10 0RF Discharge Orders: Discharge ED (Routine); Ordered 05/28/22 Ordered By: Kelechi Mayo Referrals: Lisa Brown, FOURDRINIER WIRE WEAVER [Primary Care Provider] - Discharge Diet: Usual diet Discharge Activity: Increase activity as tolerated Patient Instructions: Opioid Safety, Pain Management Activity Restrictions/Additional Instructions: All of your primary care doctor if symptoms are not improving. Take the prednisone taper starting tomorrow as directed use diclofenac and tizanidine as needed. If not improving you can follow-up with your primary care doctor to see if further evaluation is needed or referral to PT. 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
== END 2022-05-28 15:23 | disposition home or self-care (01) ==
PROVIDERS: Emergency Provider Family Medicine; PCP Registered Nurse
DX: S39.012A Strain of muscle, fascia and tendon of lower back, initial encounter (principal); I10 Essential (primary) hypertension; W17.89XA Other fall from one level to another, initial encounter
CPT/HCPCS: 96374; 96375; 99284; J1100; J1885; J2360

== ENCOUNTER 2022-10-31 06:55 | Outpatient (CLI) | payer BC, SELFPAY ==
--- NOTE | 2022-10-31 07:15 | MR_ITS ---
WS: [id number] MRI LEFT KNEE NONCONTRAST TECHNIQUE: Axial PD, coronal PD fat sat, coronal PD, sagittal PD, and sagittal PD fat-sat images obta ined. CLINICAL INFORMATION: S83.8X2A - Sprain of other specified parts of left knee, ... COMPARISON: None. FINDINGS: Distal quadriceps and patellar tendons are intact. Normal ACL and PCL. Moderate chondromalacia patell a. No subchondral edema. Chronic thinning of the medial and lateral meniscus. Tiny suprapatellar effu abimael. Small lobulated ganglion cyst along the intercondylar tibial notch. Peripheral extrusion of the lateral meniscus. Prepatellar soft tissue edema. Chronic intrasubstance signal normality involving t he medial lateral meniscus. Normal popliteal fossa. Small amount of fluid and edema deep to the medial collateral ligament compat ible with grade 1-2 injury. Distal MCL fibers appear intact. Contusions involving the medial femoral condyle and tibial plateau. Small amount of fluid and edema at the LCL insertion distally at the fibula. Fluid and edema deep to the arcuate ligament ligament. Recommend correlation for lateral collateral ligament and posterolater al corner injury injury. IMPRESSION: 1. ACL and PCL are intact. 2. Small suprapatellar effusion. 3. Moderate degenerative narrowing medial and lateral joint compartments with chronic thinning of th e medial and lateral meniscus. Peripheral extrusion of the lateral meniscus. 4. Fluid and edema deep to the medial collateral ligament with contusion involving the medial femora l condyle and tibial plateau compatible with grade 1-2 MCL injury. 5. Moderate chondromalacia patella. 6. Fluid and edema deep to the distal LCL and popliteus as well as the arcuate ligament. Recommend c orrelation for posterolateral corner injury. Outbridge grading:
== END 2022-10-31 06:56 | disposition home or self-care (01) ==
PROVIDERS: PCP Registered Nurse; Visit Provider Nurse Practitioner Family
DX: S83.8X2A Sprain of other specified parts of left knee, initial encounter (principal); M25.462 Effusion, left knee; S80.02XA Contusion of left knee, initial encounter; X58.XXXA Exposure to other specified factors, initial encounter; M22.42 Chondromalacia patellae, left knee; R60.0 Localized edema
CPT/HCPCS: 73721

== ENCOUNTER → 2022-11-13 07:35 | Outpatient (BNVA) | payer BC, SELFPAY | PROVIDERS: PCP Registered Nurse; Referring Provider Nurse Practitioner Family; Visit Provider Student in an Organized Health Care Education/Training Program | DX: S83.412A Sprain of medial collateral ligament of left knee, initial encounter; X58.XXXA Exposure to other specified factors, initial encounter | CPT/HCPCS: 73560; 73565 ==

== ENCOUNTER 2022-11-14 09:44 | Outpatient (CLI) | payer BC, SELFPAY | END 2022-11-14 09:45 | disposition home or self-care (01) | PROVIDERS: PCP Registered Nurse; Visit Provider Student in an Organized Health Care Education/Training Program | DX: Z46.89 Encounter for fitting and adjustment of other specified devices (principal); S83.8X2D Sprain of other specified parts of left knee, subsequent encounter; X58.XXXD Exposure to other specified factors, subsequent encounter | CPT/HCPCS: L1812 ==

== ENCOUNTER → 2023-06-17 13:53 | Outpatient (BNVA) | payer BC, SELFPAY | PROVIDERS: PCP Registered Nurse; Visit Provider Registered Nurse | DX: I10 Essential (primary) hypertension (principal) | CPT/HCPCS: 80053; 80061; 83036; 85025 ==

== ENCOUNTER 2023-07-03 06:51 | Outpatient (CLI) | payer BC, SELFPAY ==
--- NOTE | 2023-07-03 07:22 | USCV_ITS ---
Dionicio Snell Age: 53 Gender: M : 1970 Exam Date: 07/03/2023 07:38 Ordering Phys: Lisa Brown ASSEMBLY REPAIRER ASSEMBLY REPAIRER Technologist: Shilpa Urban [place] [facility] [place] Indication: DIZZINESS Risk Factors: Previous Vascular Surgery: Right Brachial BP: / Left Brachial BP: / Right Left Velocity (cm/s) Spectral Plaque Velocity (cm/s) Spectral Plaque Syst/Diast Broadening Syst/Diast Broadening 69.00/ 22.90 Prox CCA 82.50 / 23.40 87.40/ 27.40 Mid CCA 84.10 / 27.20 79.30/ 29.00 Distal CCA 76.60 / 33.00 69.60/ 27.40 Prox ICA 55.50 / 16.50 52.60/ 19.70 Mid ICA 66.80 / 24.70 75.70/ 31.80 Distal ICA 78.20 / 27.90 68.00 ECA 71.10 1.00 ICA/CCA 1.00 Antegrade Vertebral Antegrade 45.00/ 10.90 cm/s 31.20/ 10.90 cm/s Tri Subclavian Tri 105.4 177.4 0 0 CONCLUSIONS Right ICA stenosis <50%. Left ICA stenosis <50%. Normal antegrade Doppler flow noted in the right vertebral artery. Normal antegrade Doppler flow noted in the left vertebral artery. Ray Mcallister MD (Electronically Signed) Final Date: 03 July 2023 11:39 S
== END 2023-07-03 06:52 | disposition home or self-care (01) ==
LOC: RAD 06:51
PROVIDERS: PCP Registered Nurse; Visit Provider Registered Nurse
DX: I10 Essential (primary) hypertension (principal); R42 Dizziness and giddiness; E78.5 Hyperlipidemia, unspecified; I65.23 Occlusion and stenosis of bilateral carotid arteries
CPT/HCPCS: 93880

== ENCOUNTER 2023-07-28 08:32 | Emergency (ER) | payer BC, SELFPAY ==
--- NOTE | 2023-07-28 08:34 | XRR_ITS ---
PROCEDURE INFORMATION: Exam: XR Chest Exam date and time: 07/28/2023 8:39 AM Age: 53 years old Clinical indication: Cough TECHNIQUE: Imaging protocol: Radiologic exam of the chest. Views: 1 view. Other technique: Frontal portable upright view of the chest. COMPARISON: CR XR chest 1V portable [id number] 12/03/2021 10:09 PM FINDINGS: Lungs: Left upper lobe calcified pulmonary parenchymal granuloma. The lungs are clear bilaterally. The pulmonary vasculature is normal. Pleural spaces: No pleural effusion. No pneumothorax. Heart/Mediastinum: The heart is normal in size and contour. Mediastinum: Stable. Bones/joints: Stable. XR/XR chest 1V portable [id number] IMPRESSION: No acute cardiopulmonary abnormality identified.
[2023-07-28 08:39] VITALS: BP 166/92; PULSE 86; TEMP 36.6; O2SAT 92
--- NOTE | 2023-07-28 08:47 | ED_ITS ---
HPI - URI/Sore Throat General: Chief Complaint: Upper Respiratory Infection Stated Complaint: cough, sore throat, body aches Time Seen by Provider: 07/28/23 08:35 Source: patient Mode of arrival: ambulatory Limitations: no limitations History of Present Illness: 53-year-old male states he had cough con gestion for the last 5 to 6 days. States he had some wheezing has had bronchitis in the past states this feels similar. He denies any fevers he had some mild dyspnea. Denies any pain or vomiting or diarrhea. Denies any worse improved factors Associated symptoms: Deny abdominal pain, chills, chest pain, diarrhea, fever(s), headache(s), nausea or vomiting Review of Systems Const: Denies: fever(s), chills, body aches or change in appetite ENMT: Denies: throat pain or dental pain Card: Denies: chest pain Resp: Reports: dyspnea, non-productive cough and wheezing GI: Denies: abdominal pain, nausea, vomiting or diarrhea Musc: Denies: neck pain or back pain Skin/Breast: Denies: rash Neuro: Denies: headache(s) PFSH ED PFSH: Medical History Family history of thyroid disease Ganglion cyst Hypertension Sleep apnea alf (current) use of opiate analgesic Pain management contract signed Rib pain on right side Neck mass Surgical History History of appendectomy History of removal of cyst Family History Other CAD (coronary artery disease) Cancer Hypertension Denies family history of Diabetes Stroke Social History Smoking and tobacco/nicotine status: never used tobacco/nicotine Alcohol intake: current Alcohol intake frequency: holidays/special occasions only Substance/Drug Use: never Adopted: No Caregiver/support person: No Lives independently: Yes service: No Current occupational status: employed Sexually active: Yes Do you think of yourself as: Straight/Heterosexual Current gender identity: Male Physical Exam Const: COMMON NORMALS: no acute distress, patient oriented x3 and healthy appearing HENMT: COMMON NORMALS: normocephalic and atraumatic HEAD & SCALP: normocephalic and atraumatic Neck/C-Spine: COMMON NORMALS: full ROM and supple Chest: COMMONS NORMALS: normal inspection of the chest and normal palpation of entire chest wall Resp: COMMON NORMALS: normal respiratory effort, No retractions and No use of accessory muscles OTHER: mild wheezing Cardio: COMMON NORMALS: regular rate and regular rhythm RATE: regular rate RHYTHM: regular rhythm OTHER: systolic murmur Extremity: COMMON NORMALS: normal to inspection and full ROM Neuro: COMMON NORMALS: patient oriented x3, moves all extremities and no focal motor deficits Psych: COMMON NORMALS: mental status grossly normal, Normal thought process present and cooperative THOUGHT PROCESS: Normal thought process present Skin: COMMON NORMALS: no rashes or lesions noted and no wounds GENERAL SKIN EXAM: no rashes or lesions noted Course Vital Signs: Vital signs: Vital Signs Temperature 97.9 F 07/28/23 08:39 Pulse Rate 86 07/28/23 08:39 Blood Pressure 166/92 07/28/23 08:39 Pulse Oximetry 92 07/28/23 08:39 Oxygen Delivery Me thod Room Air 07/28/23 08:39 MDM - URI/Sore Throat Medical Decision Making Patient presents with cough congestion likely bronchitis we will prescribe him albuterol give him a Decadron shot we will place him on Keflex he is to follow- up with PCP return if worsening he understands agrees to plan. Medical Records I reviewed the patient's medical records. XR interpretation done by ED provider, pending radiology final review ED provider radiology interpretation(s): cxr: no acute abnormality Discharge Plan Discharge Patient Disposition: Home Clinical Impression: Bronchitis Condition: Stable Prescriptions: New cephalexin 500 mg capsule 500 mg PO TID 7 Days Qty: 21 0RF prednisone 50 mg tablet 50 mg PO DAILY Qty: 5 0RF No Action telmisartan 20 mg tablet 20 mg PO DAILY 90 Days Qty: 90 0RF Rx Instructions: will start 2 tab of current script on 07/22 carvedilol 12.5 mg tablet See Rx Instructions .ROUTE .COMPLEX 90 Days Qty: 180 0RF Dose Instruction: TAKE 1 TABLET BY MOUTH TWICE A DAY Rx Instructions: TAKE 1 TABLET BY MOUTH TWICE A DAY amlodipine 10 mg tablet See Rx Instructions .ROUTE .COMPLEX Qty: 90 0RF Dose Instruction: TAKE 1 TABLET BY MOUTH EVERY DAY Rx Instructions: TAKE 1 TABLET BY MOUTH EVERY DAY hydrochlorothiazide 50 mg tablet See Rx Instructions .ROUTE .COMPLEX Qty: 90 0RF Dose Instruction: TAKE 1 TABLET BY MOUTH EVERY DAY IN THE MORNING Rx Instructions: TAKE 1 TABLET BY MOUTH EVERY DAY IN THE MORNING (DME) Hinged Knee Brace See Rx Instructions .Route .MEDSUPPLY Qty: 1 0RF Rx Instructions: As directed rosuvastatin 20 mg tablet 20 mg PO DAILY 90 Days Qty: 90 0RF Discharge Orders: Discharge ED (Routine); Ordered 07/28/23 Ordered By: Manjula Stanton Referrals: Lisa Brown, DAIRY MACHINE OPERATOR FARMWORKER [Primary Care Provider] - 1-3 days Discharge Diet: Advance as tolerated Discharge Activity: Resume usual activity Patient Instructions: Acute Bronchitis (ED) Coding Level of Care Code 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
[2023-07-28] MEDS: dexamethasone 10 mg/mL INJ IM (08:53)
[2023-07-28 08:56] VITALS: BP 162/88; PULSE 76; O2SAT 92
[2023-07-28] MEDS: albuterol 8 gm MDI 2 PUFF INHALATION (09:00)
[2023-07-28 09:03] VITALS: PULSE 80; RESP 16; O2SAT 92
[2023-07-28 09:14] VITALS: BP 165/92; PULSE 80; O2SAT 93
== END 2023-07-28 09:15 | disposition home or self-care (01) ==
PROVIDERS: Emergency Provider Emergency Medicine; PCP Registered Nurse
DX: J40 Bronchitis, not specified as acute or chronic (principal); I10 Essential (primary) hypertension
CPT/HCPCS: 71045; 94640; 96372; 99284; J1100; J3535

== ENCOUNTER 2023-11-23 22:04 | Emergency (ER) | payer BC, SELFPAY ==
[2023-11-23 22:08] VITALS: BP 182/88; PULSE 71; RESP 17; TEMP 36.6; O2SAT 97; BMI 42.0
--- NOTE | 2023-11-23 22:50 | XRR_ITS ---
PROCEDURE INFORMATION: Exam: XR Chest Exam date and time: 11/23/2023 11:04 PM Age: 53 years old Clinical indication: Fever and shortness of breath; Patient HX: C/O fever with SOB. Positive home covid test five days ago. ; Additional info: SOB covid + TECHNIQUE: Imaging protocol: Radiologic exam of the chest. Views: 1 view. COMPARISON: CR XR chest 1V portable [id number] 07/28/2023 8:39 AM FINDINGS: Lungs: Scattered calcified lung granulomas again noted. Mild chronic left basilar streaky atelectasis unchanged from 07/28/2023. No consolidation. Pleural spaces: Unremarkable. No pleural effusion. No pneumothorax. Heart/Mediastinum: Unremarkable. No cardiomegaly. Bones/joints: No acute abnormality. XR/XR chest 1V portable [id number] IMPRESSION: No acute plain radiographic cardiopulmonary abnormality or interval change from 07/28/2023.
--- NOTE | 2023-11-23 22:51 | ED_ITS ---
HPI - URI/Sore Throat General: Chief Complaint: Upper Respiratory Infection Stated Complaint: Fever for a week, N/V, Covid+ Time Seen by Provider: 11/23/23 22:19 History of Present Illness: 53-year-old male who says he has been si ck for about a week. He took a COVID test at home on Saturday, and noted that it was positive. He has had a cough. Nausea. No vomiting. He had some diarrhea. He had a headache. No sputum production. No continued fever. He says that he had COVID like 4 times before , and that he is usually over it after a day or 2. He is somewhat short of breath. Related Data Previous Rx's Medication Instructions Recorded Hinged Knee Brace #1 ea 11/13/22 amlodipine 10 mg tablet See Rx Instructions .Route 07/23/23 .COMPLEX #90 tabs carvedilol 12.5 mg tablet See Rx Instructions .Route 07/23/23 .COMPLEX 90 days #180 tabs hydrochlorothiazide 50 mg tablet See Rx Instructions .Route 07/23/23 .COMPLEX #90 tabs telmisartan 20 mg tablet 20 mg PO DAILY 90 days #90 tabs 07/23/23 rosuvastatin 20 mg tablet See Rx Instructions .Route 09/09/23 .COMPLEX #90 tabs trazodone 50 mg tablet 50 mg PO DAILY 90 days #90 tabs 10/18/23 methylprednisolone 4 mg tablets in See Rx Instructions PO .COMPLEX 11/23/23 a dose pack (Medrol (Elbert)) #21 ea Allergies Allergy/AdvReac Type Severity Reaction Status Date / Time No Known Allergies Allergy Verified 11/23/23 22:13 [facility] ED PFS: Medical History Family history of thyroid disease Ganglion cyst Hypertension Sleep apnea senior living (current) use of opiate analgesic Pain management contract signed Rib pain on right side Neck mass Surgical History History of appendectomy History of removal of cyst Family History Other CAD (coronary artery disease) Cancer Hypertension Denies family history of Diabetes Stroke Social History (Reviewed 09/07/24 @ 23:42 by EVANGELINA Jeffries Smoking and tobacco/nicotine status: never used tobacco/nicotine Alcohol intake: current Alcohol intake frequency: holidays/special occasions only Substance/Drug Use: never Adopted: No Caregiver/support person: No Lives independently: Yes service: No Current occupational status: employed Sexually active: Yes Do you think of yourself as: Straight/Heterosexual Current gender identity: Male Physical Exam Const: COMMON NORMALS: no acute distress GENERAL APPEARANCE: cooperative; not ill appearing and not frail appearing HENMT: COMMON NORMALS: normocephalic, atraumatic and Normal external nose present HEAD & SCALP: normocephalic and atraumatic FACE & SINUS: normal facial exam and face symmetric NOSE: Normal external nose present Eye: COMMON NORMALS: Equal, round and reactive pupils present and EOMs intact bilaterally PUPIL: Yes Equal, round and reactive pupils present Neck/C-Spine: GENERAL: Yes trachea midline Chest: CHEST: Yes Symmetrical chest wall rise Resp: COMMON NORMALS: normal respiratory effort, No retractions, No use of accessory muscles and clear to auscultation bilaterally AUSCULTATION: clear to auscultation bilaterally Cardio: COMMON NORMALS: regular rate and regular rhythm RATE: regular rate RHYTHM: regular rhythm GI: COMMON NORMALS: Normal to inspection, nondistended, normoactive bowel sounds present Extremity: COMMON NORMALS: no pedal edema Neuro: GABBIE COMA SCALE: document GCS findings Gilliam coma scale eye opening: Spontaneous Gilliam coma scale verbal response: Orientated Gilliam coma scale motor response: Obey commands Gilliam coma scale total score: 15 SENSORY EXAM: Yes extremities (intact) Psych: COMMON NORMALS: speech normal SPEECH: Yes normal speech Skin: COMMON NORMALS: no rashes or lesions noted GENERAL SKIN EXAM: no rashes or lesions noted Course Vital Signs: Vital signs: Vital Signs Temperature 97.9 F 11/23/23 22:08 Pulse Rate 67 11/23/23 23:21 Respiratory Rate 16 11/23/23 23:21 Blood Pressure 180/99 11/23/23 23:21 Pulse Oximetry 95 11/23/23 23:21 Oxygen Delivery Me thod Room Air 11/23/23 22:08 MDM - URI/Sore Throat Medical Decision Making Chest x-ray is negative. He is afebrile. He is hypertensive, but has a history of hypertension. He will be prescribed a taper of steroids for continued cough after a week. He is not eligible for antivirals, and does not appear to need antibiotics based on his x-ray. He knows to return for worsening symptoms. Lab Data Radiology Impressions Chest X-Ray 11/23/23 22:50 IMPRESSION: No acute plain radiographic cardiopulmonary abnormality or interval change from 07/28/2023. All radiology interpretation(s) finalized by discharge Discharge Plan Discharge Patient Disposition: Home Clinical Impression: COVID-19 Condition: Stable Prescriptions: New Medrol (Elbert) 4 mg tablets,dose pack See Rx Instructions .ROUTE .COMPLEX Qty: 21 0RF Rx Instructions: orally per package directions No Action telmisartan 20 mg tablet 20 mg PO DAILY 90 Days Qty: 90 0RF Rx Instructions: will start 2 tab of current script on 07/22 carvedilol 12.5 mg tablet See Rx Instructions .ROUTE .COMPLEX 90 Days Qty: 180 0RF Dose Instruction: TAKE 1 TABLET BY MOUTH TWICE A DAY Rx Instructions: TAKE 1 TABLET BY MOUTH TWICE A DAY amlodipine 10 mg tablet See Rx Instructions .ROUTE .COMPLEX Qty: 90 0RF Dose Instruction: TAKE 1 TABLET BY MOUTH EVERY DAY Rx Instructions: TAKE 1 TABLET BY MOUTH EVERY DAY hydrochlorothiazide 50 mg tablet See Rx Instructions .ROUTE .COMPLEX Qty: 90 0RF Dose Instruction: TAKE 1 TABLET BY MOUTH EVERY DAY IN THE MORNING Rx Instructions: TAKE 1 TABLET BY MOUTH EVERY DAY IN THE MORNING (DME) Hinged Knee Brace See Rx Instructions .Route .MEDSUPPLY Qty: 1 0RF Rx Instructions: As directed rosuvastatin 20 mg tablet See Rx Instructions .ROUTE .COMPLEX Qty: 90 0RF Dose Instruction: TAKE 1 TABLET BY MOUTH EVERY DAY Rx Instructions: TAKE 1 TABLET BY MOUTH EVERY DAY trazodone 50 mg tablet 50 mg PO DAILY 90 Days Qty: 90 0RF Discharge Orders: Discharge ED (Routine); Ordered 11/23/23 Ordered By: Derrick Nguyen Referrals: Lisa Brown FNP [Primary Care Provider] - 1-3 days Patient Instructions: COVID-19 (Coronavirus Disease 2019) (ED), Opioid Safety, Pain Management Activity Restrictions/Additional Instructions: Your chest x-ray did not reveal pneumonia. You are experiencing lingering ef fects of COVID-19 illness. Prescribed medication may help. Stay hydrated. Return for problems. 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
[2023-11-23] MEDS: dexamethasone 4 mg Tablet 10 MG PO (23:19)
[2023-11-23 23:21] VITALS: BP 180/99; PULSE 67; RESP 16; O2SAT 95
== END 2023-11-23 23:29 | disposition home or self-care (01) ==
PROVIDERS: Emergency Provider Emergency Medicine; PCP Registered Nurse
DX: U07.1 COVID-19 (principal); I10 Essential (primary) hypertension
CPT/HCPCS: 71045; 99283; J8540

== ENCOUNTER → 2024-02-05 11:27 | Outpatient (BNVA) | payer BC, SELFPAY | PROVIDERS: PCP Registered Nurse; Referring Provider Registered Nurse; Visit Provider Internal Medicine Cardiovascular Disease | DX: R06.02 Shortness of breath (principal) | CPT/HCPCS: 36415; 80048; 83880; 93005 ==

== ENCOUNTER 2024-03-05 09:45 | Outpatient (CLI) | payer BC, SELFPAY ==
--- NOTE | 2024-03-05 | ECG_ITS ---
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 Interpretive Statements Lung unchanged pre/post procedure; Intraprocedure shortess of breath; Symptoms resoled by discharge PROCEDURE: The baseline electrocardiogram showed normal sinus rhythm with normal ST-Ts minimal voltage criteria for LVH.. At the baseline, the patient's blood pressure was 194/119 mm Hg with a heart rate of 83 bpm. The patient exercised for 6 minutes and 21 seconds on a standard Chemo protocol. Patient attained a maximum heart rate of 144 beats per minute(85% of the maximum predicted heart rate) with a blood pressure at the peak exercise of 155/107 mm Hg. The EKG at the peak exercise revealed no significant changes. Patient did [not have any chest pain. Few isolated PVCs were noted with the peak infusion Sestamibi was injected 1 minute prior to the peak exercise During the recovery phase, there were no new changes. Blood pressure at the end of the recovery phase was 168/110 mm Hg with a heart rate of 87 per minute. CONCLUSION: 1. Normal EKG response to [treadmill exercise 2. [No exercise-induced chest pain . Occasional PVCs are noted to his end of the infusion 3. Slightly impaired exercise tolerance, attained a maximum of 7.0 METs 4. Sestamibi/Sestamibi perfusion results pending; see separate report. Electronically Signed On 03-06-2024 14:42:19 [employer] by Chauncey Rutledge M.D. [email or web address]
[2024-03-05 10:00] VITALS: BMI 40.6
--- NOTE | 2024-03-05 10:01 | NMCV_ITS ---
NM johan perf SPECT r/s* [id number] Isabel Snellur Age: 54 Gender: M : 1970 Exam Date: 03/05/2024 10:01 Ordering Phys: Chauncey Rutledge MD ([email or web address]) Technologist: HENRY Juarez Exam Location: [facility] Indications: cp STRESS TEST [facility] IMAGE PROTOCOL Rest/Stress 1 Exercise Day Radiopharmaceutical Dose (mCi) Administration Site Administered by Rest: Tc-99m 10.7 IV HENRY Pineda Sestamibi Stress:Tc-99m 33 IV HENRY Pineda Sestamijose Rest: 05-Mar-2024 60 Discovery 630 Stress: 05-Mar-2024 15 Discovery 630 Radiopharmaceutical was injected at 85 % maximum heart rate. Images obtained in supine and prone position. SPECT RESULTS Technical Quality: Good Raw Data Analysis: Normal Image Corrections: No attenuation or motion correction applied Summed Stress Score: 0 Summed Rest Score: 1 Summed Difference Score: 0 PERFUSION FINDINGS Slightly decreased tracer uptake in the mid inferolateral segment with no reversibility FUNCTIONAL RESULTS (calculated via Gated SPECT) Stress Image LV EF (%): 57 Stress EDV (mL):155 TID: 0.84 Stress ESV (mL):66 FUNCTIONAL FINDINGS: Segmental wall motion analysis revealing no gross wall motion abnormalities IMPRESSIONS 1. Myocardial perfusion imaging revealing small area of slightly decreased persistent tracer uptake in the mid inferolateral region suggestive of myocardial scarring versus attenuation artifact. 2. Normal LV ejection fraction of 57%. 3. LV wall motion analysis revealing no gross wall motion abnormalities. 4. Mildly dilated LV cavity with end-systolic volume of 66 mL No similar previous studies are available for comparison Dr Chauncey Rutledge MD FAC (Electronically Signed) Final Date: 05 March 2024 23:21 S
[2024-03-05 11:46] VITALS: BP 168/110; PULSE 88
--- NOTE | 2024-03-05 12:23 | USCV_ITS ---
Dionicio Snell Age: 54 Gender: M : 1970 Exam Date: 03/05/2024 12:26 Ordering Phys: Chauncey Rutledge MD ([email or web address]) Technologist: Exam Location: [facility] [place] Indication: cp BP: 190 / 90 HR: 87 Rhythm: Sinus Technical Quality: Adequate MEASUREMENTS (Male / Female) Normal Values 2D ECHO LV Diastolic Diameter PLAX 4.9 cm 4.2 - 5.9 / 3.9 - 5.3 cm IVS Diastolic Thickness 1.5 cm 0.6 - 1.0 / 0.6 - 0.9 cm IVS Systolic Thickness 2.1 cm LVPW Diastolic Thickness 1.5 cm 0.6 - 1.0 / 0.6 - 0.9 cm LVPW Systolic Thickness 2.0 cm LVOT Diameter 2.1 cm LV Ejection Fraction 2D Teich 66.6 % LV Ejection Fraction MOD 4C 60.4 % LV Ejection Fraction MOD 2C 50.9 % LV Ejection Fraction 2C AL 50.6 % LA Diameter 4.4 cm RA Systolic Volume 4C AL 47.5 ml RA Systolic Volume 4C MOD 45.1 ml Aorta at Sinotubular Diameter 3.7 cm M-MODE LA Ao Ratio MM 1.4 AV Cusp Separation MM 2.3 cm DOPPLER AV Peak Velocity 295.0 cm/s LVOT Peak Velocity 98.0 cm/s AV Area Cont Eq vti 1.1 cm squared AV Area Cont Eq pk 1.1 cm squared MV Peak Velocity 117.0 cm/s MV Area PHT 5.2 cm squared Mitral E to A Ratio 0.8 TV Peak Velocity 218.5 cm/s TR Peak Velocity 288.0 cm/s TR Peak Gradient 33.2 mmHg TV Peak E Velocity 133.0 cm/s FINDINGS Left Ventricle Normal LV size ejection fraction of 58%. No gross wall motion abnormalities noted.Grade I/IV diastolic dysfunction (abnormal relaxation filling pattern), normal to mildly elevated filling pressures. Right Ventricle The right ventricle is normal in size and function. Right Atrium The right atrium is normal in size. Left Atrium The left atrium is normal in size. Mitral Valve Trace of mitral valve regurgitation. Aortic Valve [id number] aortic valve regurgitation. Moderate aortic valve stenosis, mean gradient 17.3 mmHg, ELTON 1.1 cm squared. Peak velocity of 2.98 m/s with a peak gradient of 35 mmHg Tricuspid Valve Trace tricuspid valve regurgitation. Pulmonic Valve Pulmonic valve not well visualized. Pericardium Normal pericardium without effusion. Aorta Normal ascending aorta dimension. IVC Inferior vena cava not visualized. CONCLUSIONS Normal LV size ejection fraction of 58%. No gross wall motion abnormalities noted.Grade I/IV diastolic dysfunction (abnormal relaxation filling pattern), normal to mildly elevated filling pressures. [id number] aortic valve regurgitation. Moderate aortic valve stenosis, mean gradient 17.3 mmHg, ELTON 1.1 cm squared. Peak velocity of 2.98 m/s with a peak gradient of 35 mmHg. Trace tricuspid valve regurgitation. Trace of mitral valve regurgitation. There is no pericardial effusion. There are no intracardiac masses. Compared to the study from 10/17/2017, there is development of aortic valve stenosis. Dr Chauncey Rutledge MD FAC (Electronically Signed) Final Date: 12 March 2024 17:48 S
== END 2024-03-05 09:51 | disposition home or self-care (01) ==
PROVIDERS: PCP Registered Nurse; Visit Provider Internal Medicine Cardiovascular Disease
DX: Z98.61 Coronary angioplasty status (principal); R01.1 Cardiac murmur, unspecified; R06.02 Shortness of breath; I50.30 Unspecified diastolic (congestive) heart failure; I35.2 Nonrheumatic aortic (valve) stenosis with insufficiency
CPT/HCPCS: 36415; 78452; 93017; 93306; A9500

== ENCOUNTER → 2024-07-04 15:54 | Outpatient (BNVA) | payer BC, SELFPAY | PROVIDERS: PCP Registered Nurse; Visit Provider Emergency Medicine | DX: M19.011 Primary osteoarthritis, right shoulder (principal) | CPT/HCPCS: 73030 ==

== ENCOUNTER → 2024-08-11 10:28 | Outpatient (BNVA) | payer BC, SELFPAY | PROVIDERS: PCP Registered Nurse; Visit Provider Registered Nurse | DX: I10 Essential (primary) hypertension (principal) | CPT/HCPCS: 80053; 80061 ==

== ENCOUNTER → 2024-08-31 09:10 | Outpatient (BNVA) | payer SELFPAY | PROVIDERS: PCP Registered Nurse; Visit Provider Psychiatry & Neurology Psychiatry | DX: F41.1 Generalized anxiety disorder (principal) | CPT/HCPCS: 83036 ==

== ENCOUNTER 2024-09-01 07:32 | Outpatient (CLI) | payer BC, SELFPAY ==
--- NOTE | 2024-09-01 08:00 | MM_ITS ---
WS: [id number] DIAGNOSTIC BILATERAL DIGITAL BREAST TOMOSYNTHESIS MAMMOGRAPHY WITH CAD RIGHT breast ultrasound, limited HISTORY: right breast mass, male patient. COMPARISON: None available. TECHNIQUE: Bilateral craniocaudad, mediolateral oblique, and mediolateral views are submitted with tomosynthesis and SM. Spot compression RIGHT CC and MLO. Computer aided detection utilized. Breast composition: The breasts are almost entirely fatty. Increased ill-defined density in the anterior, retroareolar RIGHT breast. This corresponds to the palpable marker. No well formed mass. No distortion or nipple retraction. No suspicious grouping of calcifications within either breast. RIGHT breast ultrasound: Limited. Dendritic area of decreased echogenicity and mild heterogeneity in the retroareolar region of the RIGHT breast. Abnormality measures 2.1 x 1.0 cm. No increased vascularity. No similar finding on the LEFT. MM/MM diag tomosynthesis [id number] IMPRESSION: BI-RADS: 2 - Benign. FOLLOW UP: See Report RIGHT breast abnormality is most consistent with gynecomastia. No additional im aging follow-up necessary.
== END 2024-09-01 07:33 | disposition home or self-care (01) ==
LOC: RAD 07:34
PROVIDERS: PCP Registered Nurse; Visit Provider Emergency Medicine
DX: R92.30 Dense breasts, unspecified (principal)
CPT/HCPCS: 76642; 77062; G0279

== ENCOUNTER 2025-01-07 08:14 | Outpatient (CLI) | payer BC, OTHER, MEDICAID, SELFPAY ==
[2024-12-02 09:19] VITALS: BP 118/64; BMI 42.9
--- NOTE | 2025-01-07 08:15 | CT_ITS ---
WS: [id number] CT HEAD TECHNIQUE: Noncontrast CT of the head obtained from the skullbase to the vertex. CLINICAL INFORMATION: R51.9 - Headache, unspecified COMPARISON: 2018 DLP: 1194.[address] scans at [facility] use at least one of these dose optimization techniques: automated exposure control; mA and/or kV adjustment per patient size (includes targeted exams where dose is matched to clinical indication); or iterative reconstruction. FINDINGS: No evidence of intracranial hemorrhage or mass effect. Ventricular system and basal cisterns are patent. Incidental cavum septum pellucidum and vergae. No extra-axial fluid collections. No evidence of mass or mass effect. Normal patterson- white differentiation. Paranasal sinuses and mastoid air cells are well aerated. .Normal visualized soft tissues. CT/CT head wo con* [id number] IMPRESSION: 1. No evidence of intracranial hemorrhage or mass effect. 2. No acute intracranial findings.
== END 2025-01-07 08:15 | disposition home or self-care (01) ==
LOC: RAD 08:14
PROVIDERS: PCP Registered Nurse; Visit Provider Registered Nurse
DX: G43.109 Migraine with aura, not intractable, without status migrainosus (principal)
CPT/HCPCS: 70450

== ENCOUNTER → 2025-01-08 10:27 | Outpatient (BNVA) | payer BC, MEDICAID, SELFPAY ==
[2024-12-02 09:19] VITALS: BP 118/64; BMI 42.9
== END ==
PROVIDERS: PCP Registered Nurse; Visit Provider Internal Medicine Cardiovascular Disease
DX: R06.02 Shortness of breath (principal)
CPT/HCPCS: 36415; 80048; 83880; 93005

== ENCOUNTER 2025-02-04 06:00 | Outpatient (CLI) | payer MEDICAID, SELFPAY ==
[2024-12-02 09:19] VITALS: BP 118/64; BMI 42.9
--- NOTE | 2025-02-04 06:15 | USCV_ITS ---
Dionicio Snell Age: 54 Gender: M : 1970 Exam Date: 02/04/2025 06:19 Ordering Phys: Chauncey Rutledge MD ([email or web address]) Technologist: Exam Location: [facility] [place] Indication: as BP: 180 / 100 HR: 63 Rhythm: Sinus Technical Quality: Adequate MEASUREMENTS (Male / Female) Normal Values 2D ECHO LV Diastolic Diameter PLAX 5.8 cm 4.2 - 5.9 / 3.9 - 5.3 cm IVS Diastolic Thickness 1.7 cm 0.6 - 1.0 / 0.6 - 0.9 cm IVS Systolic Thickness 2.2 cm LVPW Diastolic Thickness 1.4 cm 0.6 - 1.0 / 0.6 - 0.9 cm LVPW Systolic Thickness 2.0 cm LVOT Diameter 2.0 cm LV Ejection Fraction 2D Teich 69.4 % LV Ejection Fraction MOD 4C 62.5 % LV Ejection Fraction MOD 2C 59.7 % LV Ejection Fraction 2C AL 60.6 % LA Diameter 3.7 cm RA Systolic Volume 4C AL 58.6 ml RA Systolic Volume 4C MOD 58.7 ml Aorta at Sinotubular Diameter 3.6 cm IVC Diameter 1.7 cm M-MODE LA Ao Ratio MM 1.2 AV Cusp Separation MM 2.4 cm DOPPLER AV Peak Velocity 349.3 cm/s LVOT Peak Velocity 96.0 cm/s AV Area Cont Eq vti 1.1 cm squared AV Area Cont Eq pk 0.9 cm squared MV Peak Velocity 124.0 cm/s MV Area PHT 4.0 cm squared Mitral E to A Ratio 1.1 TV Peak Velocity 218.0 cm/s TR Peak Velocity 291.0 cm/s TR Peak Gradient 33.9 mmHg TV Peak E Velocity 92.0 cm/s PV Peak Velocity 120.0 cm/s FINDINGS Left Ventricle Normal left ventricular size and systolic function, EF 60%. Moderate left ventricular hypertrophy. No regional wall motion abnormalities. Right Ventricle Normal right ventricular size and systolic function. Right Atrium Normal right atrial size. Left Atrium Normal left atrial size. IA Septum Normal interatrial septum. Mitral Valve Trace mitral valve regurgitation. Aortic Valve Moderate aortic valve stenosis, ELTON 1.1 cm squared. Moderate aortic valve calcification. Mild aortic valve regurgitation. Peak velocity of 3.13 m/s with a peak gradient of 39 and a mean gradient of 19 mmHg. Tricuspid Valve No gross abnormalities noted.trace tricuspid valve regurgitation. Pulmonic Valve Structurally normal pulmonic valve. Pericardium No pericardial effusion. Aorta Normal aortic annulus size. IVC Normal inferior vena cava. CONCLUSIONS Normal left ventricular size and systolic function, EF 60%. Moderate left ventricular hypertrophy. No regional wall motion abnormalities. Moderate aortic valve stenosis, ELTON 1.1 cm squared. Moderate aortic valve calcification. Mild aortic valve regurgitation. Peak velocity of 3.13 m/s with a peak gradient of 39 and a mean gradient of 19 mmHg. Trace mitral valve regurgitation. Trace tricuspid valve regurgitation. Estimated pulmonary artery peak systolic pressure 37 mmHg There is no pericardial effusion. There are no intracardiac masses. Compared to the study from 03/05/2024, there may be a significant change Dr Chauncey Rutledge MD [facility] (Electronically Signed) Final Date: 07 February 2025 09:40 S
== END 2025-02-04 06:01 | disposition home or self-care (01) ==
LOC: RAD 06:00
PROVIDERS: PCP Registered Nurse; Visit Provider Internal Medicine Cardiovascular Disease
DX: R06.09 Other forms of dyspnea (principal); I51.7 Cardiomegaly; I35.0 Nonrheumatic aortic (valve) stenosis; I35.8 Other nonrheumatic aortic valve disorders; I35.1 Nonrheumatic aortic (valve) insufficiency
CPT/HCPCS: 93306